=== PATIENT | female | born 2000 | race Caucasian/White ===

== ENCOUNTER 2021-07-19 10:05 | Emergency (ER) | payer SELFPAY ==
[2021-07-19] MEDS ORDERED: Bacitracin Oint 1 GM U/D Packet TOP ONE (10:24)
[2021-07-19] MEDS ORDERED: Lidocaine 2% with EPINEPHrine 1:200,000 20 ML SDV INJECT ONE (10:25)
--- NOTE | 2021-07-19 10:59 | EDM.PDOC ---
ED HPI GENERAL MEDICAL PROBLEM - General Stated Complaint: FELL HIT HEAD Time Seen by Provider: 07/19/21 10:15 Source of Information: Reports: Patient History Limitations: Reports: No Limitations - History of Present Illness INITIAL COMMENTS - FREE TEXT/NARRATIVE: This 21 yo female patient reports to the ED with a laceration to her anterior scalp. The patient reports she hit her head on cabinet prior to coming to the ED. The patient denies any loss of consciousness during the event. Onset Date: 07/19/21 Duration: Constant Location: Reports: Head Quality: Reports: Dull Severity: Mild Improves with: Reports: None Worsens with: Reports: None Context: Reports: Activity Treatments TERRA COTTA ROOFER: Reports: Other (see below) Other Treatments TERRA COTTA ROOFER: Ibuprofen Head Pain Score (Numeric/FACES): 7 - Related Data Allergies Allergy/AdvReac Type Severity Reaction Status Date / Time No Known Allergies Allergy Verified 07/19/21 10:25 Home Meds: Home Meds Levonorgestrel/Ethin.estradiol [Chateal-28 Tablet] 1 tab PO DAILY 07/19/21 [History] Past Medical History - Past Health History Medical/Surgical History: Denies Medical/Surgical History Social & Family History - Family History Family Medical History: No Pertinent Family History - Tobacco Use Tobacco Use Status *Q: Never Tobacco User Second Hand Smoke Exposure: No - Caffeine Use Caffeine Use: Reports: None - Alcohol Use Date of Last Drink: 07/18/21 - Recreational Drug Use Recreational Drug Use: No ED ROS GENERAL - Review of Systems Review Of Systems: Comprehensive ROS is negative, except as noted in HPI. ED EXAM, SKIN/RASH Exam: See Below Exam Limited By: No Limitations General Appearance: Alert, WD/WN, Mild Distress Eye Exam: Bilateral Eye: EOMI, Normal Inspection, PERRL Ears: Normal External Exam, Normal Canal, Hearing Grossly Normal, Normal TMs Nose: Normal Inspection, Normal Mucosa, No Blood Throat/Mouth: Normal Inspection, Normal Lips, Normal Teeth, Normal Gums, Normal Oropharynx, Normal Voice, No Airway Compromise Head: Other (scalp lac) Neck: Normal Inspection, Supple, Non-Tender, Full Range of Motion Respiratory/Chest: No Respiratory Distress, Lungs Clear, Normal Breath Sounds, No Accessory Muscle Use, Chest Non-Tender Cardiovascular: Normal Peripheral Pulses, Regular Rate, Rhythm, No Edema, No Gallop, No JVD, No Murmur, No Rub GI/Abdominal: Normal Bowel Sounds, Soft, Non-Tender, No Organomegaly, No Distention, No Abnormal Bruit, No Mass (Female) Exam: Deferred Rectal (Female) Exam: Deferred Back Exam: Normal Inspection, Full Range of Motion, NT Extremities: Normal Inspection, Normal Range of Motion, Non-Tender, No Pedal Edema, Normal Capillary Refill Neurological: Alert, Oriented, CN II-XII Intact, Normal Cognition, Normal Gait, Normal Reflexes, No Motor/Sensory Deficits Psychiatric: Normal Affect, Normal Mood Skin: Wound/Incision Location, Skin: Head Characteristics: Linear Associated features: Tenderness Lymphatic: No Adenopathy ED SKIN PROCEDURES - Laceration/Wound Repair Head Appearance: Subcutaneous Anesthetic Type: Local Local Anesthesia - Lidocaine (Xylocaine): 2% with EPI Local Anesthetic Volume: 3cc Skin Prep: Saline Exploration/Debridement/Repair: Wound Explored, No Foreign Material Found Closed with: Sutures Lac/Wound length In cm: 2.5 Suture Size: 4-0 # of Sutures: 4 Suture Type: Prolene, Interrupted, Simple Sterile Dressing Applied: Provider Tetanus Status Addressed: Yes Complications: No Course - Vital Signs Last Recorded V/S: Last Vital Signs Temp 97.6 F 07/19/21 10:11 Pulse 127 H 07/19/21 10:11 Resp 16 07/19/21 10:11 BP 129/83 07/19/21 10:11 Pulse Ox 99 07/19/21 10:11 - Orders/Labs/Meds Meds: Medications Discontinued Medications Generic Name Dose Route Start Last Admin Trade Name Joe PRN Reason Stop Dose Admin Bacitracin 1 dose 07/19/21 10:24 07/19/21 10:27 Bacitracin Oint 1 Gm U/D Packet TOP 07/19/21 10:25 1 dose ONETIME ONE Administration Lidocaine/Epinephrine 20 ml 07/19/21 10:25 07/19/21 10:27 Lidocaine 2% With Epinephrine 1:200,000 20 Ml Sdv INJECT 07/19/21 10:26 20 ml ONETIME ONE Administration Departure - Departure Time of Disposition: 10:46 Disposition: Home, Self-Care 01 Condition: Fair Clinical Impression: Scalp laceration Qualifiers: Encounter type: initial encounter Qualified Code(s): S01.01XA - Laceration without foreign body of scalp, initial encounter - Discharge Information *PRESCRIPTION DRUG MONITORING PROGRAM REVIEWED*: Not Applicable *COPY OF PRESCRIPTION DRUG MONITORING REPORT IN PATIENT ASHLYN: Not Applicable Instructions: Laceration Care, Adult, [facility][id number] Forms: ED Department Discharge Care Plan Goals: The patient was advised of the examination results during the visit. The wound margins were well approximated during the visit. The patient was encouraged to keep the area clean and dry over the next 24 hours. The patient should have the sutures removed in 10-14 days. If the patient has any additional symptoms or concerns, the patient should either return to the emergency department or visit her primary care facility. Sepsis Event Note (ED) - Evaluation Sepsis Screening Result: No Definite Risk
== END 2021-07-19 12:25 | disposition home or self-care (01) ==
LOC: DL.ED 10:05
DX: S01.01XA Laceration without foreign body of scalp, initial encounter (principal); W22.8XXA Striking against or struck by other objects, initial encounter
CPT/HCPCS: 12001; 99282-25

== ENCOUNTER 2025-10-23 08:37 | Inpatient (IN) | payer OTHER ==
[2025-10-23] MEDS ORDERED: fentaNYL 100 MCG/2 ML SDV IVPUSH PRN (09:16)
[2025-10-23] MEDS ORDERED: Sodium Chloride 0.9% 10 ML Syringe FLUSH PRN (09:16)
[2025-10-23] MEDS ORDERED: Nalbuphine HCl 10 MG/ 1ML Amp IM PRN (09:16)
[2025-10-23] MEDS ORDERED: Carboprost Tromethamine 250 MCG/1 mL Vial IM PRN (09:16)
[2025-10-23] MEDS ORDERED: Oxytocin/Lactated Ringers 30 UNIT/500 ML BAG IV SCH (09:30)
[2025-10-23] MEDS ORDERED: Oxytocin/Normal Saline 30 UNIT/500 ML BAG IV SCH (09:30)
[2025-10-23 10:15] LABS: PLATELET COUNT,PLT 148.0 10^3/uL (150-450); RED BLOOD CELL COUNT 4.77 10^6/uL (4.2-5.4); WHITE BLOOD CELL COUNT,WBC 12.0 10^3/uL (5.0-10.0)
[2025-10-23] MEDS: Oxytocin/Normal Saline 30 UNIT/500 ML BAG IV SCH (10:43)
[2025-10-23] MEDS: Lactated Ringers 1,000 ML IV SCH (10:43)
[2025-10-23] MEDS: Lactated Ringers 1,000 ML IV ONE (14:16)
[2025-10-23] MEDS: Ondansetron 4 MG/2 ML SDV IVPUSH PRN (14:16)
[2025-10-24] MEDS ORDERED: Oxytocin 10 Units/1 ML SDV IM PRN (01:32)
[2025-10-24] MEDS ORDERED: Sodium Chloride 0.9% 10 ML Syringe FLUSH PRN (01:32)
[2025-10-24] MEDS ORDERED: Aluminum Hydroxide/Magnesium Hydroxide/Simethicone Susp 30 ML Cup PO PRN (01:32)
[2025-10-24] MEDS ORDERED: Carboprost Tromethamine 250 MCG/1 mL Vial IM PRN (01:32)
[2025-10-24] MEDS: Benzocaine/Menthol 20%-0.5% Spray 78 GM Cannister TOP PRN (02:00)
[2025-10-24] MEDS: Witch Hazel Medicated Pads 100/Jar TOP PRN (02:00)
[2025-10-24] MEDS: Prenatal Multivitamin with Calcium/Folic Acid/Iron Tab PO SCH (08:35)
[2025-10-24 11:58] LABS: PLATELET COUNT,PLT 154.0 10^3/uL (150-450)
== END 2025-10-25 10:51 | disposition home or self-care (01) | DRG 807 ==
LOC: DL.OBCHECK 08:37 → DL.OB 09:21 → OBSVTOIN 23:29 → DL.OB 23:29 → UNDODISIN 10-25 10:37
PROVIDERS: ADMIT Student in an Organized Health Care Education/Training Program; ATTEND Student in an Organized Health Care Education/Training Program
PROC: 0KQM0ZZ Repair Perineum Muscle, Open Approach (ICD-10-PCS; principal; 2025-10-23)
PROC: 10907ZC Drainage of Amniotic Fluid, Therapeutic from Products of Conception, Via Natural or Artificial Opening (ICD-10-PCS; principal; 2025-10-23)
PROC: 10E0XZZ Delivery of Products of Conception, External Approach (ICD-10-PCS; principal; 2025-10-23)
PROC: 3E0R3BZ Introduction of Anesthetic Agent into Spinal Canal, Percutaneous Approach (ICD-10-PCS; principal; 2025-10-23)
DX: O36.8390 Maternal care for abnormalities of the fetal heart rate or rhythm, unspecified trimester, not applicable or unspecified (principal); Z37.0 Single live birth; Z3A.39 39 weeks gestation of pregnancy; Z67.11 Type A blood, Rh negative; Z79.899 Other long term (current) drug therapy
CPT/HCPCS: 36415; 51702; 59409; 85014; 85018; 85027; 85049; 85461; 86850; 86900; 86901; A9270-GY; J0290; J1580; J2405; J2590; J2791; J7120